=== PATIENT | female | born 1985 | race African-American/Black ===

== ENCOUNTER 2016-09-28 17:29 | Emergency (ER) | payer OTHER | END 2016-09-28 19:45 | disposition home or self-care (01) | LOC: CED 17:29 | DX: L73.2 Hidradenitis suppurativa (principal); F17.200 Nicotine dependence, unspecified, uncomplicated; E11.9 Type 2 diabetes mellitus without complications; I10 Essential (primary) hypertension; J45.909 Unspecified asthma, uncomplicated; Z90.49 Acquired absence of other specified parts of digestive tract; Z91.041 Radiographic dye allergy status | CPT/HCPCS: 99282 ==